=== PATIENT | female | born 1975 | race Caucasian/White ===

== ENCOUNTER 2016-09-17 15:02 | Outpatient (CLI) | payer BC, OTHER ==
[2016-09-18 08:00] LABS: BASOPHILS % (AUTO) 0.2 % (0.0-2.0); EOSINOPHILS # (AUTO) 0.1 K/uL (0.0-0.7); EOSINOPHILS % (AUTO) 1.8 % (0.0-7.0); HEMATOCRIT 40.1 % (37.0-47.0); LYMPHOCYTES % (AUTO) 15.5 % (20.5-51.5); MEAN CORPUSCULAR HEMOGLOBIN 32.4 uug (27.0-31.0); MEAN CORPUSCULAR HGB CONC 35 g/dL (32.0-37.0); MEAN CORPUSCULAR VOLUME 92.9 fL (81.0-99.0); MONOCYTES # (AUTO) 0.3 K/uL (0.1-1.30); MONOCYTES % (AUTO) 4.5 % (0.0-11.0); NEUTROPHILS # (AUTO) 5.3 K/uL (1.8-8.9); PLATELET COUNT (AUTO) 231 K/uL (150-450); RED BLOOD CELL COUNT(AUTO) 4.32 MIL/uL (4.20-5.40); RED CELL DISTRIBUTION WIDTH 12.2 % (11.5-14.5); WHITE BLOOD COUNT (AUTO) 6.7 K/uL (4.0-11.2)
[2016-09-18 09:08] LABS: ALBUMIN 4.2 g/dL (3.4-5.0); BILIRUBIN,TOTAL 0.5 mg/dL (0.2-1.0); CALCIUM 8.6 mg/dL (8.5-10.1); CREATININE 0.6 mg/dL (0.6-1.3); POTASSIUM 3.5 mmol/L (3.5-5.1); TOTAL PROTEIN, SERUM 8.3 g/dL (6.4-8.2)
[2016-09-18 09:21] LABS: HIV-1 p24 ANTIGEN NON REACTIVE (NONREACTIVE); HIV-1/2 ANTIBODY NON REACTIVE (NONREACTIVE)
[2016-09-18 10:06] LABS: THYROID STIMULATING HORMONE 0.404 mIU/mL (0.358-3.740)
[2016-09-19 05:06] LABS: HCV AB <0.1 s/co ratio (0.0-0.9)
== END 2016-09-17 23:59 | disposition home or self-care (01) ==
LOC: LAB 15:02
PROVIDERS: ATTEND Family Medicine
DX: Z12.4 Encounter for screening for malignant neoplasm of cervix (principal); Z11.3 Encounter for screening for infections with a predominantly sexual mode of transmission
CPT/HCPCS: 36415; 84443; 85025; 86592; 86803; 87806

== ENCOUNTER 2017-01-24 07:55 | Outpatient (CLI) | payer BC, OTHER ==
[2017-01-24 08:30] LABS: *BLOOD, URINE 2+ (NEGATIVE); *CLARITY,URINE SLIGHTLY CLOUDY (CLEAR); *KETONES,URINE TRACE (NEGATIVE); LEUKOCYTE ESTERASE ,URINE 3+ (NEGATIVE)
[2017-01-24 08:40] LABS: *BILIRUBIN,URIN 1+ (NEGATIVE); *COLOR,URINE Orange (YELLOW)
[2017-01-24 08:41] LABS: *PROTEIN,URINE 2+ (NEGATIVE); NITRITE, URINE POSITIVE (NEGATIVE); UGLUCOSE TRACE (NEGATIVE)
[2017-01-24 09:08] LABS: BACTERIA,URINE FEW /HPF (NONE SEEN); SQUAMOUS EPITHELIAL CELL,UR FEW /HPF (NONE SEEN)
== END 2017-01-24 23:59 | disposition home or self-care (01) ==
LOC: LAB 07:55
PROVIDERS: ATTEND Family Medicine
DX: N39.0 Urinary tract infection, site not specified (principal)
CPT/HCPCS: 87086

== ENCOUNTER → 2017-02-07 | Outpatient (CLI) | payer BC, OTHER ==
[~2017-02-07] MED LIST: IOHEXOL 300MG/ML 100 ML INFUS..BTL ONE; IV NORMAL SALINE 250 ML IV ONE
[2017-02-07 09:12] LABS: BASOPHILS % (AUTO) 0.7 % (0.0-2.0); EOSINOPHILS % (AUTO) 0.7 % (0.0-7.0); HEMATOCRIT 42.7 % (37-47); HEMOGLOBIN 14.4 G/DL (12.0-16.0); LYMPHOCYTES # (AUTO) 1.6 K/UL (0.8-4.8); LYMPHOCYTES % (AUTO) 23.7 % (20.5-51.5); MEAN CORPUSCULAR HEMOGLOBIN 32.5 UUG (27.0-31.0); MEAN CORPUSCULAR HGB CONC 34 g/dL (32.0-37.0); MEAN CORPUSCULAR VOLUME 96.1 FL (81.0-99.0); MONOCYTES # (AUTO) 0.4 K/UL (0.1-1.30); MONOCYTES % (AUTO) 5.1 % (0.0-11.0); NEUTROPHILS # (AUTO) 4.9 K/UL (1.8-8.9); NEUTROPHILS % (AUTO) 69.8 % (38.5-71.5); RED BLOOD CELL COUNT(AUTO) 4.44 MIL/UL (4.2-5.4); WHITE BLOOD COUNT (AUTO) 6.9 K/UL (4.0-11.2)
[2017-02-07 09:16] LABS: PLATELET COUNT (AUTO) 268 K/UL (150-450)
[2017-02-07 09:29] LABS: BILIRUBIN,TOTAL 0.8 mg/dL (0.2-1.0); CREATININE 0.7 mg/dL (0.6-1.3); POTASSIUM 3.4 mmol/L (3.5-5.1); TOTAL PROTEIN, SERUM 8.3 g/dL (6.4-8.2)
[2017-02-07 11:05] LABS: *URINE HCG, QUAL NEGATIVE (NEGATIVE)
== END | disposition home or self-care (01) ==
LOC: LAB 07:21
PROVIDERS: ATTEND Family Medicine
DX: N20.0 Calculus of kidney (principal); N28.1 Cyst of kidney, acquired; K80.20 Calculus of gallbladder without cholecystitis without obstruction; K76.89 Other specified diseases of liver; K31.89 Other diseases of stomach and duodenum; K42.9 Umbilical hernia without obstruction or gangrene; R04.0 Epistaxis; M47.899 Other spondylosis, site unspecified
CPT/HCPCS: 36415; 74178; 80053; 84703; 85025; 85730; J7050; Q9967

== ENCOUNTER 2017-03-14 10:34 | Outpatient (CLI) | payer BC, OTHER ==
[2017-03-15 08:17] LABS: AFP, TUMOR MARKER 4.6 ng/mL (0.0-8.3); HEPATITIS A AB, TOTAL Positive (Negative); HEPATITIS B SURFACE AB Reactive (.); HEPATITIS B SURFACE AG Negative (Negative)
== END 2017-03-14 23:59 | disposition home or self-care (01) ==
LOC: LAB 10:34
PROVIDERS: ATTEND Family Medicine
DX: K76.9 Liver disease, unspecified (principal)
CPT/HCPCS: 36415; 82105; 86706; 86708; 86803; 87340

== ENCOUNTER 2017-04-23 12:04 | Day surgery (SDC) | payer BC, OTHER ==
[2017-04-23] MEDS ORDERED: PROPOFOL 200 MG/20 ML BOTTLE IV ONE (12:05)
[2017-04-23] MEDS ORDERED: LIDOCAINE HCL 2% 20 ML VIAL MC ONE (12:05)
[2017-04-23 12:12] LABS: BASOPHILS # (AUTO) 0.1 K/uL (0.0-8.0); BASOPHILS % (AUTO) 0.7 % (0.0-2.0); EOSINOPHILS % (AUTO) 0.4 % (0.0-7.0); HEMOGLOBIN 13.6 g/dL (10.9-14.3); LYMPHOCYTES # (AUTO) 1.3 K/uL (20.0-40.0); LYMPHOCYTES % (AUTO) 18.7 % (20.5-51.5); MEAN CORPUSCULAR HEMOGLOBIN 33.3 uug (24.7-32.8); MEAN CORPUSCULAR HGB CONC 35 g/dL (32.3-35.6); MEAN CORPUSCULAR VOLUME 95.5 fL (75.5-95.3); MONOCYTES # (AUTO) 0.4 K/uL (2.0-10.0); MONOCYTES % (AUTO) 5.3 % (0.0-11.0); NEUTROPHILS # (AUTO) 5.3 K/uL (1.8-8.9); NEUTROPHILS % (AUTO) 74.9 % (38.5-71.5); PLATELET COUNT (AUTO) 217 K/uL (179-408); RED BLOOD CELL COUNT(AUTO) 4.08 MIL/uL (3.63-4.92)
[2017-04-23 12:16] LABS: *BILIRUBIN,URIN NEGATIVE (NEGATIVE); *BLOOD, URINE 3+ (NEGATIVE); *CLARITY,URINE SLIGHTLY CLOUDY (CLEAR); *COLOR,URINE YELLOW (YELLOW); *KETONES,URINE 1+ (NEGATIVE); *PROTEIN,URINE NEGATIVE (NEGATIVE); *UROBILINOGEN,URINE 0.2 E.U./dl (NORMAL); LEUKOCYTE ESTERASE ,URINE 1+ (NEGATIVE); NITRITE, URINE NEGATIVE (NEGATIVE); PH,URINE 5.5 (5.0-8.0); UGLUCOSE NEGATIVE (NEGATIVE)
[2017-04-23 12:17] LABS: *URINE HCG, QUAL NEG (NEGATIVE)
[2017-04-23 12:18] LABS: CREATININE 0.6 mg/dL (0.6-1.3); POTASSIUM 3.5 mmol/L (3.5-5.1)
[2017-04-23 12:24] LABS: BILIRUBIN,TOTAL 1.1 mg/dL (0.2-1.0); TOTAL PROTEIN, SERUM 7.8 g/dL (6.4-8.2)
[2017-04-23 12:30] LABS: RBC,URINE 20-50 /HPF (0-3)
[2017-04-23 12:31] LABS: BACTERIA,URINE FEW /HPF (NONE SEEN); SQUAMOUS EPITHELIAL CELL,UR MODERATE /HPF (NONE SEEN)
== END 2017-04-23 15:35 | disposition home or self-care (01) ==
LOC: DS 12:04
PROVIDERS: ATTEND Internal Medicine Gastroenterology
DX: R10.13 Epigastric pain (principal); K27.9 Peptic ulcer, site unspecified, unspecified as acute or chronic, without hemorrhage or perforation; Z80.3 Family history of malignant neoplasm of breast
CPT/HCPCS: 36415; 43239; 80053; 81001; 84703; 85025; 85730; A4663; J7120; A4217; J3490

== ENCOUNTER → 2017-07-04 | Outpatient (CLI) | payer BC, OTHER ==
[2017-07-04 11:54] LABS: BASOPHILS % (AUTO) 0.5 % (0.0-2.0); EOSINOPHILS % (AUTO) 0.5 % (0.0-7.0); HEMATOCRIT 38.3 % (31.2-41.9); HEMOGLOBIN 13.5 g/dL (10.9-14.3); LYMPHOCYTES # (AUTO) 1.7 K/uL (20.0-40.0); LYMPHOCYTES % (AUTO) 24.9 % (20.5-51.5); MEAN CORPUSCULAR HEMOGLOBIN 33.3 uug (24.7-32.8); MEAN CORPUSCULAR HGB CONC 35 g/dL (32.3-35.6); MEAN CORPUSCULAR VOLUME 94.2 fL (75.5-95.3); MONOCYTES # (AUTO) 0.5 K/uL (2.0-10.0); MONOCYTES % (AUTO) 6.8 % (0.0-11.0); NEUTROPHILS # (AUTO) 4.7 K/uL (1.8-8.9); NEUTROPHILS % (AUTO) 67.3 % (38.5-71.5); PLATELET COUNT (AUTO) 232 K/uL (179-408); RED BLOOD CELL COUNT(AUTO) 4.07 MIL/uL (3.63-4.92)
[2017-07-04 12:04] LABS: BILIRUBIN,TOTAL 0.9 mg/dL (0.2-1.0); CREATININE 0.8 mg/dL (0.6-1.3); POTASSIUM 3.2 mmol/L (3.5-5.1); TOTAL PROTEIN, SERUM 8.1 g/dL (6.4-8.2)
[2017-07-05 15:10] LABS: HEPATITIS B SURFACE AB Reactive (.); HEPATITIS B SURFACE AG Negative (Negative)
[2017-07-06 03:09] LABS: AFP, TUMOR MARKER 3.7 ng/mL (0.0-8.3)
[2017-07-07 08:07] LABS: ANTI-MITOCHONDRIAL AB 32.8 Units (0.0-20.0)
== END | disposition home or self-care (01) ==
LOC: LAB 11:16
PROVIDERS: ATTEND Internal Medicine Gastroenterology
DX: K76.9 Liver disease, unspecified (principal)
CPT/HCPCS: 36415; 82105; 85025; 86038; 86235; 86706; 86803; 87340

== ENCOUNTER 2018-03-05 07:53 | Outpatient (CLI) | payer BC, OTHER | END 2018-03-05 23:59 | disposition home or self-care (01) | LOC: LAB 07:53 | PROVIDERS: ATTEND Family Medicine | DX: K80.20 Calculus of gallbladder without cholecystitis without obstruction (principal) | CPT/HCPCS: 36415; 76700; 86677 ==

== ENCOUNTER 2018-04-03 12:19 | Emergency (ER) | payer BC, OTHER ==
[~2018-04-03] VITALS: Ht 152.4 cm; Wt 49.9 kg
--- NOTE | 2018-04-03 12:35 | NUR ---
Patient discharged in stable conditon. Written and verbal after care instructions given. Patient verbalizes understanding of instructions.
[2018-04-03 12:36] VITALS: BP 104/74
== END 2018-04-03 12:38 | disposition home or self-care (01) ==
LOC: ER 12:19
DX: I88.9 Nonspecific lymphadenitis, unspecified (principal)
CPT/HCPCS: A4663

== ENCOUNTER 2018-08-27 06:51 | Outpatient (CLI) | payer BC, OTHER ==
[2018-08-27 07:59] LABS: BASOPHILS % (AUTO) 0.9 % (0.0-2.0); EOSINOPHILS # (AUTO) 0.1 K/uL (0.0-0.7); EOSINOPHILS % (AUTO) 1.3 % (0.0-7.0); HEMATOCRIT 39.1 % (31.2-41.9); HEMOGLOBIN 13.8 g/dL (10.9-14.3); LYMPHOCYTES % (AUTO) 18.5 % (20.5-51.5); MEAN CORPUSCULAR HEMOGLOBIN 32.9 uug (24.7-32.8); MEAN CORPUSCULAR HGB CONC 35 g/dL (32.3-35.6); MEAN CORPUSCULAR VOLUME 93.5 fL (75.5-95.3); MONOCYTES # (AUTO) 0.3 K/uL (2.0-10.0); MONOCYTES % (AUTO) 5.1 % (0.0-11.0); NEUTROPHILS # (AUTO) 3.8 K/uL (1.8-8.9); NEUTROPHILS % (AUTO) 74.2 % (38.5-71.5); PLATELET COUNT (AUTO) 230 K/uL (179-408); RED BLOOD CELL COUNT(AUTO) 4.19 MIL/uL (3.63-4.92); WHITE BLOOD COUNT (AUTO) 5.2 K/uL (3.8-11.8)
[2018-08-27 08:23] LABS: THYROID STIMULATING HORMONE 0.443 mIU/mL (0.358-3.740)
[2018-08-27 08:38] LABS: IRON, SERUM 139 ug/dL (50-175)
[2018-08-27 08:42] LABS: BILIRUBIN,TOTAL 0.8 mg/dL (0.2-1.0); CREATININE 0.6 mg/dL (0.6-1.3); POTASSIUM 3.5 mmol/L (3.5-5.1); TOTAL PROTEIN, SERUM 8.1 g/dL (6.4-8.2)
[2018-08-30 18:06] LABS: *VITAMIN D 25-OH VIT D 20 ng/mL (.); *VITAMIN D 25-OH, D2 <1.0 ng/mL (.); *VITAMIN D 25-OH, D3 19 ng/mL (.)
== END 2018-08-27 23:59 | disposition home or self-care (01) ==
LOC: LAB 06:51
PROVIDERS: ATTEND Internal Medicine
DX: R53.83 Other fatigue (principal)
CPT/HCPCS: 83550; 84443; 85025

== ENCOUNTER 2019-06-10 08:57 | Emergency (ER) | payer BC, OTHER ==
[~2019-06-10] VITALS: Ht 149.9 cm; Wt 49.4 kg
--- NOTE | 2019-06-10 09:15 | NUR ---
ERMD at bedside for MSE
[2019-06-10] MEDS ORDERED: ACETAMINOPHEN ES 500 MG TABLET PO ONE (09:30)
[2019-06-10] MEDS ORDERED: IPRATROPIUM BROMIDE 0.5 MG/2.5 ML NEBU NEB ONE (09:30)
[2019-06-10] MEDS ORDERED: IBUPROFEN 600 MG TABLET PO ONE (09:30)
[2019-06-10] MEDS ORDERED: ONDANSETRON 4 MG/2 ML VIAL IV ONE (09:30)
[2019-06-10] MEDS ORDERED: IV NORMAL SALINE 1000 ML BAG IV ONE (09:30)
[2019-06-10] MEDS ORDERED: ALBUTEROL SULFATE 2.5 MG/3 ML NEBU NEB ONE (09:30)
[2019-06-10] MEDS ORDERED: IPRATROPIUM BROMIDE 0.5 MG/2.5 ML NEBU ONE (09:31)
[2019-06-10] MEDS ORDERED: ALBUTEROL SULFATE 2.5 MG/3 ML NEBU ONE (09:31)
[2019-06-10] MEDS ORDERED: ACETAMINOPHEN ES 500 MG TABLET ONE (09:33)
[2019-06-10] MEDS ORDERED: IBUPROFEN 600 MG TABLET ONE (09:34)
[2019-06-10] MEDS ORDERED: ONDANSETRON 4 MG/2 ML VIAL ONE (09:34)
--- NOTE | 2019-06-10 09:40 | NUR ---
Patient transported to Radiology in stable condition.
[2019-06-10 09:43] LABS: BASOPHILS # (AUTO) 0.1 K/uL (0.0-8.0); EOSINOPHILS # (AUTO) 0.2 K/uL (0.0-0.7); EOSINOPHILS % (AUTO) 1.7 % (0.0-7.0); HEMATOCRIT 40.3 % (31.2-41.9); HEMOGLOBIN 13.8 g/dL (10.9-14.3); LYMPHOCYTES # (AUTO) 1.3 K/uL (20.0-40.0); LYMPHOCYTES % (AUTO) 14.1 % (20.5-51.5); MEAN CORPUSCULAR HEMOGLOBIN 32.8 uug (24.7-32.8); MEAN CORPUSCULAR HGB CONC 34 g/dL (32.3-35.6); MONOCYTES # (AUTO) 0.5 K/uL (2.0-10.0); MONOCYTES % (AUTO) 5.2 % (0.0-11.0); PLATELET COUNT (AUTO) 213 K/uL (179-408); RED BLOOD CELL COUNT(AUTO) 4.21 MIL/uL (3.63-4.92)
--- NOTE | 2019-06-10 09:48 | NUR ---
Patient back in room from CT
[2019-06-10 09:50] LABS: MAGNESIUM 1.9 mg/dL (1.8-2.4)
[2019-06-10 09:51] LABS: CREATININE 0.6 mg/dL (0.6-1.3)
[2019-06-10 10:05] LABS: BILIRUBIN,DIRECT 0.1 mg/dL (0.0-0.2); BILIRUBIN,TOTAL 0.5 mg/dL (0.2-1.0)
[2019-06-10 10:28] LABS: *BILIRUBIN,URIN NEGATIVE (NEGATIVE); *BLOOD, URINE 3+ (NEGATIVE); *CLARITY,URINE CLEAR (CLEAR); *COLOR,URINE YELLOW (YELLOW); *KETONES,URINE NEGATIVE (NEGATIVE); *UROBILINOGEN,URINE 0.2 E.U./dl (NORMAL); LEUKOCYTE ESTERASE ,URINE NEGATIVE (NEGATIVE); NITRITE, URINE NEGATIVE (NEGATIVE); UGLUCOSE NEGATIVE (NEGATIVE)
[2019-06-10 10:30] LABS: *URINE HCG, QUAL NEGATIVE (NEGATIVE)
[2019-06-10 10:36] LABS: BACTERIA,URINE FEW /HPF (NONE SEEN); SQUAMOUS EPITHELIAL CELL,UR FEW /HPF (NONE SEEN); WBC,URINE 0-3 /HPF (0-3)
[2019-06-10 10:52] VITALS: BP 123/69
--- NOTE | 2019-06-10 10:52 | NUR ---
Patient discharged to home in stable conditon. Written and verbal after care instructions given. Patient verbalizes understanding of instructions. NAD patient ambulated with stable gait.
== END 2019-06-10 10:53 | disposition home or self-care (01) ==
LOC: ER 08:57
DX: R11.0 Nausea (principal); J20.9 Acute bronchitis, unspecified; R51 Headache; M79.10 Myalgia, unspecified site
CPT/HCPCS: 36415; 71046; 80048; 80076; 81000; 81001; 83690; 83735; 84703; 85025; 94640; 96374; 99284; J2405; A4663; A9150; J3590

== ENCOUNTER → 2019-10-16 | Outpatient (CLI) | payer BC, OTHER | END | disposition home or self-care (01) | LOC: LAB 07:47 | PROVIDERS: ATTEND Family Medicine | DX: R10.9 Unspecified abdominal pain (principal) | CPT/HCPCS: 76700 ==

== ENCOUNTER 2019-10-23 09:44 | Emergency (ER) | payer BC, OTHER ==
[~2019-10-23] VITALS: Ht 149.9 cm; Wt 49.9 kg
[2019-10-23] MEDS ORDERED: PANTOPRAZOLE SODIUM 40 MG TABLET.DR PO ONE ×2 (10:15→10:18)
[2019-10-23] MEDS ORDERED: MAG HYDROX/AL HYDROX/SIMETH 30 ML LIQUID UDC PO ONE (10:15)
[2019-10-23] MEDS ORDERED: LIDOCAINE VISCUS 2% 15 ML UDC MM ONE (10:15)
[2019-10-23] MEDS ORDERED: ONDANSETRON ODT 4 MG TAB.RAPDIS SL ONE (10:15)
[2019-10-23] MEDS ORDERED: FAMOTIDINE 20 MG TABLET PO ONE (10:15)
[2019-10-23] MEDS ORDERED: ONDANSETRON ODT 4 MG TAB.RAPDIS ONE (10:17)
[2019-10-23] MEDS ORDERED: MAG HYDROX/AL HYDROX/SIMETH 30 ML LIQUID UDC ONE (10:18)
[2019-10-23] MEDS ORDERED: FAMOTIDINE 20 MG TABLET ONE (10:18)
[2019-10-23] MEDS ORDERED: LIDOCAINE VISCUS 2% 15 ML UDC ONE (10:18)
[2019-10-23 10:31] LABS: BASOPHILS # (AUTO) 0.1 K/uL (0.0-8.0); BASOPHILS % (AUTO) 1.2 % (0.0-2.0); EOSINOPHILS # (AUTO) 0.1 K/uL (0.0-0.7); HEMATOCRIT 39.9 % (31.2-41.9); HEMOGLOBIN 13.7 g/dL (10.9-14.3); LYMPHOCYTES # (AUTO) 1.1 K/uL (20.0-40.0); LYMPHOCYTES % (AUTO) 18.8 % (20.5-51.5); MEAN CORPUSCULAR HEMOGLOBIN 32.2 uug (24.7-32.8); MEAN CORPUSCULAR HGB CONC 34 g/dL (32.3-35.6); MEAN CORPUSCULAR VOLUME 93.9 fL (75.5-95.3); MONOCYTES # (AUTO) 0.3 K/uL (2.0-10.0); MONOCYTES % (AUTO) 5.7 % (0.0-11.0); NEUTROPHILS # (AUTO) 4.1 K/uL (1.8-8.9); NEUTROPHILS % (AUTO) 73.3 % (38.5-71.5); PLATELET COUNT (AUTO) 223 K/uL (179-408); RED BLOOD CELL COUNT(AUTO) 4.25 MIL/uL (3.63-4.92); WHITE BLOOD COUNT (AUTO) 5.6 K/uL (3.8-11.8)
[2019-10-23 10:35] LABS: CREATININE 0.6 mg/dL (0.6-1.3); POTASSIUM 3.7 mmol/L (3.5-5.1)
[2019-10-23 10:40] LABS: BILIRUBIN,DIRECT 0.2 mg/dL (0.0-0.2); BILIRUBIN,TOTAL 0.6 mg/dL (0.2-1.0); TOTAL PROTEIN, SERUM 8.1 g/dL (6.4-8.2)
[2019-10-23 11:01] LABS: *BILIRUBIN,URIN NEGATIVE (NEGATIVE); *BLOOD, URINE 1+ (NEGATIVE); *CLARITY,URINE CLOUDY (CLEAR); *COLOR,URINE YELLOW (YELLOW); *KETONES,URINE NEGATIVE (NEGATIVE); *UROBILINOGEN,URINE 0.2 E.U./dl (NORMAL); LEUKOCYTE ESTERASE ,URINE NEGATIVE (NEGATIVE); NITRITE, URINE NEGATIVE (NEGATIVE); PH,URINE 8.5 (5.0-8.0); UGLUCOSE NEGATIVE (NEGATIVE)
[2019-10-23 11:02] LABS: *URINE HCG, QUAL NEGATIVE (NEGATIVE)
[2019-10-23 11:09] LABS: BACTERIA,URINE NONE SEEN /HPF (NONE SEEN); WBC,URINE 0-3 /HPF (0-3)
[2019-10-23 11:10] LABS: SQUAMOUS EPITHELIAL CELL,UR FEW /HPF (NONE SEEN); URINE AMORPHOUS PHOSPHATES MANY /HPF
--- NOTE | 2019-10-23 11:35 | NUR ---
Patient discharged to home in stable condition. Written and verbal after care instructions given. Patient verbalizes understanding of instructions. Stressed follow up or return to ER for worsening s/s.
== END 2019-10-23 11:37 | disposition home or self-care (01) ==
LOC: ER 09:44
DX: K29.00 Acute gastritis without bleeding (principal); R11.2 Nausea with vomiting, unspecified; R51 Headache; Z87.898 Personal history of other specified conditions; R10.13 Epigastric pain
CPT/HCPCS: 36415; 70030-TC; 83690; 84703; 85025; 93005; A4663; Q0162

== ENCOUNTER → 2020-03-25 | Outpatient (CLI) | payer BC, OTHER ==
[~2020-03-25] MED LIST changes: -IOHEXOL 300MG/ML 100 ML INFUS..BTL ONE; -IV NORMAL SALINE 250 ML IV ONE; +PANT20TA2 PO
[2020-03-25 07:43] LABS: BASOPHILS # (AUTO) 0.1 K/uL (0.0-8.0); BASOPHILS % (AUTO) 0.7 % (0.0-2.0); EOSINOPHILS % (AUTO) 0.3 % (0.0-7.0); HEMATOCRIT 39.2 % (31.2-41.9); HEMOGLOBIN 13.7 g/dL (10.9-14.3); LYMPHOCYTES # (AUTO) 0.8 K/uL (20.0-40.0); LYMPHOCYTES % (AUTO) 11.4 % (20.5-51.5); MEAN CORPUSCULAR HEMOGLOBIN 33.3 uug (24.7-32.8); MEAN CORPUSCULAR HGB CONC 35 g/dL (32.3-35.6); MEAN CORPUSCULAR VOLUME 95.1 fL (75.5-95.3); MONOCYTES # (AUTO) 0.3 K/uL (2.0-10.0); MONOCYTES % (AUTO) 4.7 % (0.0-11.0); NEUTROPHILS # (AUTO) 6.1 K/uL (1.8-8.9); NEUTROPHILS % (AUTO) 82.9 % (38.5-71.5); PLATELET COUNT (AUTO) 241 K/uL (179-408); RED BLOOD CELL COUNT(AUTO) 4.12 MIL/uL (3.63-4.92); WHITE BLOOD COUNT (AUTO) 7.4 K/uL (3.8-11.8)
[2020-03-25 07:56] LABS: BILIRUBIN,TOTAL 0.9 mg/dL (0.2-1.0); CREATININE 0.7 mg/dL (0.6-1.3); POTASSIUM 3.3 mmol/L (3.5-5.1); TOTAL PROTEIN, SERUM 8.3 g/dL (6.4-8.2)
[2020-03-25 08:41] LABS: THYROID STIMULATING HORMONE 0.59 mIU/mL (0.358-3.740)
[2020-03-25 10:45] LABS: *RHEUMATOID FACTOR SCREEN NEGATIVE (NEGATIVE)
== END | disposition home or self-care (01) ==
LOC: LAB 06:46
PROVIDERS: ATTEND Family Medicine
DX: M25.522 Pain in left elbow (principal); Z00.01 Encounter for general adult medical examination with abnormal findings
CPT/HCPCS: 73080; 82306; 84443; 85025; 86038; 86430; 86592; 87806

== ENCOUNTER 2020-07-30 22:00 | Emergency (ER) | payer BC, OTHER ==
[~2020-07-30] VITALS: Ht 149.9 cm; Wt 49.4 kg
[2020-07-30] MEDS ORDERED: ONDANSETRON 4 MG/2 ML VIAL IM ONE (22:15)
[2020-07-30] MEDS ORDERED: HYDROMORPHONE 1 MG/1 ML DISP.SYRIN IM ONE (22:15)
[2020-07-30] MEDS ORDERED: HYDROMORPHONE 1 MG/1 ML DISP.SYRIN ONE (22:20)
[2020-07-30] MEDS ORDERED: ONDANSETRON 4 MG/2 ML VIAL ONE (22:20)
--- NOTE | 2020-07-30 23:04 | NUR ---
Patient discharged to home in stable condition. Written and verbal after care instructions given. Patient and boyfriend Amaury verbalizes understanding of instructions. Stressed follow up or return to ER for worsening s/s.
== END 2020-07-30 23:10 | disposition home or self-care (01) ==
LOC: ER 22:03
DX: R51.9 Headache, unspecified (principal); K21.9 Gastro-esophageal reflux disease without esophagitis; Z79.899 Other long term (current) drug therapy
CPT/HCPCS: 70450; 96372 ×2; 99284; J1170; J2405; A4663

== ENCOUNTER 2020-08-04 08:00 | Outpatient (CLI) | payer BC, OTHER ==
[2020-08-04 07:05] LABS: BASOPHILS # (AUTO) 0.1 K/uL (0.0-8.0); BASOPHILS % (AUTO) 1.2 % (0.0-2.0); EOSINOPHILS # (AUTO) 0.1 K/uL (0.0-0.7); EOSINOPHILS % (AUTO) 1.2 % (0.0-7.0); HEMATOCRIT 37.4 % (31.2-41.9); HEMOGLOBIN 13.3 g/dL (10.9-14.3); LYMPHOCYTES # (AUTO) 1.3 K/uL (20.0-40.0); LYMPHOCYTES % (AUTO) 20.1 % (20.5-51.5); MEAN CORPUSCULAR HEMOGLOBIN 33.8 uug (24.7-32.8); MEAN CORPUSCULAR HGB CONC 35 g/dL (32.3-35.6); MEAN CORPUSCULAR VOLUME 95.6 fL (75.5-95.3); MONOCYTES # (AUTO) 0.4 K/uL (2.0-10.0); MONOCYTES % (AUTO) 6.6 % (0.0-11.0); NEUTROPHILS # (AUTO) 4.5 K/uL (1.8-8.9); NEUTROPHILS % (AUTO) 70.9 % (38.5-71.5); PLATELET COUNT (AUTO) 222 K/uL (179-408); RED BLOOD CELL COUNT(AUTO) 3.92 MIL/uL (3.63-4.92); WHITE BLOOD COUNT (AUTO) 6.4 K/uL (3.8-11.8)
[2020-08-04 07:07] LABS: *BILIRUBIN,URIN NEGATIVE (NEGATIVE); *BLOOD, URINE 2+ (NEGATIVE); *CLARITY,URINE CLEAR (CLEAR); *COLOR,URINE YELLOW (YELLOW); *KETONES,URINE NEGATIVE (NEGATIVE); *UROBILINOGEN,URINE 0.2 E.U./dl (NORMAL); LEUKOCYTE ESTERASE ,URINE 1+ (NEGATIVE); NITRITE, URINE NEGATIVE (NEGATIVE); UGLUCOSE NEGATIVE (NEGATIVE)
[2020-08-04 07:16] LABS: BILIRUBIN,TOTAL 0.6 mg/dL (0.2-1.0); CREATININE 0.9 mg/dL (0.6-1.3); POTASSIUM 3.9 mmol/L (3.5-5.1); TOTAL PROTEIN, SERUM 8.1 g/dL (6.4-8.2)
[2020-08-04 08:10] LABS: THYROID STIMULATING HORMONE 0.563 mIU/mL (0.358-3.740)
[2020-08-08 16:53] LABS: ESTRADIOL 6.5; FOLLICLE STIMULATION HORMONE 69.1; LUTEINIZING HORMONE 38.2
== END 2020-08-04 23:59 | disposition home or self-care (01) ==
LOC: LAB 08:00
PROVIDERS: ATTEND Family Medicine
DX: N91.2 Amenorrhea, unspecified (principal); R10.9 Unspecified abdominal pain; R51.9 Headache, unspecified
CPT/HCPCS: 36415; 82306; 82670; 83001; 83002; 84443; 85025; 87086

== ENCOUNTER 2020-08-22 08:12 | Outpatient (CLI) | payer BC, OTHER ==
[2020-08-22 10:16] LABS: *BILIRUBIN,URIN NEGATIVE (NEGATIVE); *BLOOD, URINE 2+ (NEGATIVE); *CLARITY,URINE TURBID (CLEAR); *KETONES,URINE NEGATIVE (NEGATIVE); *UROBILINOGEN,URINE 0.2 E.U./dl (NORMAL); LEUKOCYTE ESTERASE ,URINE NEGATIVE (NEGATIVE); NITRITE, URINE NEGATIVE (NEGATIVE); PH,URINE 5.5 (5.0-8.0); UGLUCOSE NEGATIVE (NEGATIVE)
[2020-08-22 10:21] LABS: *COLOR,URINE LIGHT YELLOW (YELLOW)
[2020-08-22 14:11] LABS: BACTERIA,URINE FEW /HPF (NONE SEEN); CALCIUM OXALATE CRYSTALS,UR FEW /HPF (NONE SEEN); SQUAMOUS EPITHELIAL CELL,UR FEW /HPF (NONE SEEN); URINE AMORPHOUS URATE MANY /HPF; WBC,URINE 0-3 /HPF (0-3)
== END 2020-08-22 23:59 | disposition home or self-care (01) ==
LOC: LAB 08:12
PROVIDERS: ATTEND Family Medicine
DX: N95.1 Menopausal and female climacteric states (principal); N91.2 Amenorrhea, unspecified; R31.9 Hematuria, unspecified; R04.0 Epistaxis; R10.9 Unspecified abdominal pain
CPT/HCPCS: 84146; 87086; U0003

== ENCOUNTER 2020-09-05 14:37 | Outpatient (CLI) | payer BC, OTHER | END 2020-09-05 23:59 | disposition home or self-care (01) | LOC: CT 14:37 | PROVIDERS: ATTEND Family Medicine | DX: J34.2 Deviated nasal septum (principal); R04.0 Epistaxis | CPT/HCPCS: 70486 ==

== ENCOUNTER 2020-09-06 09:59 | Outpatient (CLI) | payer BC, OTHER | END 2020-09-06 23:59 | disposition home or self-care (01) | LOC: US 09:59 | PROVIDERS: ATTEND Internal Medicine Gastroenterology | DX: R10.13 Epigastric pain (principal) | CPT/HCPCS: 76700 ==

== ENCOUNTER 2020-09-13 06:43 | Outpatient (CLI) | payer BC, OTHER | END 2020-09-13 23:59 | disposition home or self-care (01) | LOC: LAB 06:43 | PROVIDERS: ATTEND Internal Medicine Gastroenterology | DX: Z01.812 Encounter for preprocedural laboratory examination (principal); Z20.822 Contact with and (suspected) exposure to COVID-19; R10.13 Epigastric pain ==

== ENCOUNTER 2020-09-15 10:00 | Day surgery (SDC) | payer BC, OTHER ==
[2020-09-15] MEDS ORDERED: PROPOFOL 200 MG/20 ML BOTTLE IV ONE (10:01)
[2020-09-15] MEDS ORDERED: LIDOCAINE-MPF 2% 5 ML VIAL IJ ONE (10:01)
[2020-09-15] MEDS ORDERED: IRR STERIL WATER FOR IRR 1000 ML BOTTLE IR ONE (10:01)
[2020-09-15 10:38] LABS: *BILIRUBIN,URIN NEGATIVE (NEGATIVE); *BLOOD, URINE 2+ (NEGATIVE); *CLARITY,URINE SLIGHTLY CLOUDY (CLEAR); *COLOR,URINE YELLOW (YELLOW); *KETONES,URINE NEGATIVE (NEGATIVE); *UROBILINOGEN,URINE 0.2 E.U./dl (NORMAL); LEUKOCYTE ESTERASE ,URINE TRACE (NEGATIVE); NITRITE, URINE NEGATIVE (NEGATIVE); PH,URINE 5.5 (5.0-8.0); UGLUCOSE NEGATIVE (NEGATIVE)
[2020-09-15 10:41] LABS: *URINE HCG, QUAL NEG (NEGATIVE)
[2020-09-15 10:43] LABS: CREATININE 0.7 mg/dL (0.6-1.3); POTASSIUM 3.7 mmol/L (3.5-5.1)
[2020-09-15 10:46] LABS: WHITE BLOOD COUNT (AUTO) 6.3 K/uL (3.8-11.8)
[2020-09-15 10:48] LABS: BILIRUBIN,TOTAL 0.6 mg/dL (0.2-1.0); TOTAL PROTEIN, SERUM 8.2 g/dL (6.4-8.2)
[2020-09-15 10:51] LABS: BASOPHILS # (AUTO) 0.1 K/uL (0.0-8.0); BASOPHILS % (AUTO) 1.1 % (0.0-2.0); EOSINOPHILS # (AUTO) 0.1 K/uL (0.0-0.7); HEMATOCRIT 38.8 % (31.2-41.9); HEMOGLOBIN 13.8 g/dL (10.9-14.3); LYMPHOCYTES # (AUTO) 1.6 K/uL (20.0-40.0); LYMPHOCYTES % (AUTO) 25.6 % (20.5-51.5); MEAN CORPUSCULAR HEMOGLOBIN 33.9 uug (24.7-32.8); MEAN CORPUSCULAR HGB CONC 36 g/dL (32.3-35.6); MEAN CORPUSCULAR VOLUME 95.2 fL (75.5-95.3); MONOCYTES # (AUTO) 0.3 K/uL (2.0-10.0); MONOCYTES % (AUTO) 5.4 % (0.0-11.0); NEUTROPHILS # (AUTO) 4.2 K/uL (1.8-8.9); NEUTROPHILS % (AUTO) 66.9 % (38.5-71.5); PLATELET COUNT (AUTO) 195 K/uL (179-408); RED BLOOD CELL COUNT(AUTO) 4.07 MIL/uL (3.63-4.92)
[2020-09-15 22:46] LABS: BACTERIA,URINE FEW /HPF (NONE SEEN); SQUAMOUS EPITHELIAL CELL,UR FEW /HPF (NONE SEEN); WBC,URINE 0-3 /HPF (0-3)
== END 2020-09-15 12:40 | disposition home or self-care (01) ==
LOC: DS 10:00
PROVIDERS: ATTEND Internal Medicine Gastroenterology
DX: R10.13 Epigastric pain (principal); K21.00 Gastro-esophageal reflux disease with esophagitis, without bleeding; K29.50 Unspecified chronic gastritis without bleeding; K31.89 Other diseases of stomach and duodenum; K76.9 Liver disease, unspecified; R10.816 Epigastric abdominal tenderness; Z87.440 Personal history of urinary (tract) infections; Z79.899 Other long term (current) drug therapy; Z98.890 Other specified postprocedural states
CPT/HCPCS: 36415; 43239; 80053; 81001; 84703; 85025; 85730; J3490; 88313-TC; 88342; A4217

== ENCOUNTER 2020-09-23 08:33 | Outpatient (CLI) | payer BC, OTHER | END 2020-09-23 23:59 | disposition home or self-care (01) | LOC: LAB 08:33 | PROVIDERS: ATTEND Family Medicine | DX: Z75.3 Unavailability and inaccessibility of health-care facilities (principal) ==

== ENCOUNTER 2020-09-27 08:09 | Outpatient (CLI) | payer BC, OTHER ==
[2020-09-27 08:45] LABS: BILIRUBIN,TOTAL 0.6 mg/dL (0.2-1.0); CREATININE 0.7 mg/dL (0.6-1.3); POTASSIUM 3.6 mmol/L (3.5-5.1)
[2020-09-27 08:50] LABS: EOSINOPHILS # (AUTO) 0.1 K/uL (0.0-0.7); HEMOGLOBIN 13.5 g/dL (10.9-14.3); MONOCYTES # (AUTO) 0.3 K/uL (2.0-10.0)
[2020-09-27 09:11] LABS: BASOPHILS # (AUTO) 0.1 K/uL (0.0-8.0); BASOPHILS % (AUTO) 0.9 % (0.0-2.0); EOSINOPHILS % (AUTO) 1.1 % (0.0-7.0); HEMATOCRIT 38.6 % (31.2-41.9); LYMPHOCYTES # (AUTO) 1.1 K/uL (20.0-40.0); LYMPHOCYTES % (AUTO) 19.7 % (20.5-51.5); MEAN CORPUSCULAR HEMOGLOBIN 33.4 uug (24.7-32.8); MEAN CORPUSCULAR HGB CONC 35 g/dL (32.3-35.6); MEAN CORPUSCULAR VOLUME 95.9 fL (75.5-95.3); MONOCYTES % (AUTO) 5.9 % (0.0-11.0); NEUTROPHILS # (AUTO) 4.1 K/uL (1.8-8.9); NEUTROPHILS % (AUTO) 72.4 % (38.5-71.5); PLATELET COUNT (AUTO) 229 K/uL (179-408); RED BLOOD CELL COUNT(AUTO) 4.03 MIL/uL (3.63-4.92); WHITE BLOOD COUNT (AUTO) 5.7 K/uL (3.8-11.8)
[2020-09-27] MEDS ORDERED: IOHEXOL 300MG/ML 100 ML INFUS..BTL ONE (09:18)
[2020-09-27] MEDS ORDERED: IV NORMAL SALINE 250 ML IV ONE (09:18)
[2020-09-27] MEDS ORDERED: SWABABLE VALVE TRANSFER SET EA MC ONE (09:18)
--- NOTE | 2020-09-28 11:04 | NUR ---
RESULTS WERE FAXED TO THE PATIENTS
--- NOTE | 2020-09-28 11:05 | NUR ---
RESULTS OF CT WERE FAXED TO DR OSULLIVAN
== END 2020-09-27 23:59 | disposition home or self-care (01) ==
LOC: LAB 08:09
PROVIDERS: ATTEND Family Medicine
DX: K80.11 Calculus of gallbladder with chronic cholecystitis with obstruction (principal); N20.0 Calculus of kidney; N28.1 Cyst of kidney, acquired; N32.89 Other specified disorders of bladder; R31.9 Hematuria, unspecified; N85.4 Malposition of uterus; M41.85 Other forms of scoliosis, thoracolumbar region; M47.815 Spondylosis without myelopathy or radiculopathy, thoracolumbar region
CPT/HCPCS: 74178; 80053; 82150; 83690; 85025; 85730; 86704; 86706; 86803; 87340; 87350; Q9967; 36415; J7050

== ENCOUNTER 2021-01-18 09:04 | Outpatient (CLI) | payer BC, OTHER ==
[2021-01-19 08:20] LABS: HEMATOCRIT 41.8 % (31.2-41.9); MEAN CORPUSCULAR HEMOGLOBIN 32.8 uug (24.7-32.8); MEAN CORPUSCULAR VOLUME 96.1 fL (75.5-95.3); PLATELET COUNT (AUTO) 230 K/uL (179-408)
[2021-01-19 08:26] LABS: BILIRUBIN,TOTAL 0.7 mg/dL (0.2-1.0); CREATININE 0.6 mg/dL (0.6-1.3); POTASSIUM 4.5 mmol/L (3.5-5.1); TOTAL PROTEIN, SERUM 8.4 g/dL (6.4-8.2)
== END 2021-01-18 23:59 | disposition home or self-care (01) ==
LOC: LAB 09:04
PROVIDERS: ATTEND Family Medicine
DX: M54.9 Dorsalgia, unspecified (principal)
CPT/HCPCS: 36415; 72072; 83690; 85025

== ENCOUNTER 2021-03-07 07:11 | Outpatient (CLI) | payer BC, OTHER | END 2021-03-07 23:59 | disposition home or self-care (01) | LOC: LAB 07:11 | PROVIDERS: ATTEND Obstetrics & Gynecology | DX: Z01.812 Encounter for preprocedural laboratory examination (principal); Z20.822 Contact with and (suspected) exposure to COVID-19 ==

== ENCOUNTER 2021-03-07 08:50 | Outpatient (CLI) | payer BC, OTHER ==
[2021-03-07 12:36] LABS: HEMATOCRIT 38.3 % (31.2-41.9); MEAN CORPUSCULAR HEMOGLOBIN 33.9 uug (24.7-32.8); MEAN CORPUSCULAR VOLUME 97.2 fL (75.5-95.3); PLATELET COUNT (AUTO) 220 K/uL (179-408)
[2021-03-07 12:38] LABS: ALANINE AMINOTRANSFERASE 16 U/L (14-59); ALKALINE PHOSPHATASE 59 U/L (50-136); ASPARTATE AMINOTRANSFERASE 17 U/L (15-37); BILIRUBIN,TOTAL 0.7 mg/dL (0.2-1.0); CARBON DIOXIDE 32 mmol/L (21-32); CHLORIDE 105 mmol/L (98-107); CREATININE 0.6 mg/dL (0.6-1.3); GLUCOSE 93 mg/dL (74-106); POTASSIUM 3.6 mmol/L (3.5-5.1); TOTAL PROTEIN, SERUM 7.9 g/dL (6.4-8.2)
[2021-03-07 12:51] LABS: *BILIRUBIN,URIN NEGATIVE (NEGATIVE); *BLOOD, URINE 3+ (NEGATIVE); *CLARITY,URINE CLEAR (CLEAR); *COLOR,URINE YELLOW (YELLOW); *KETONES,URINE NEGATIVE (NEGATIVE); *UROBILINOGEN,URINE 0.2 E.U./dl (NORMAL); LEUKOCYTE ESTERASE ,URINE NEGATIVE (NEGATIVE); NITRITE, URINE NEGATIVE (NEGATIVE); PH,URINE 5.5 (5.0-8.0); UGLUCOSE NEGATIVE (NEGATIVE)
[2021-03-07 14:48] LABS: BACTERIA,URINE NONE SEEN /HPF (NONE SEEN); SQUAMOUS EPITHELIAL CELL,UR MODERATE /HPF (NONE SEEN); URINE AMORPHOUS URATE MANY /HPF
[2021-03-07 15:05] LABS: UREA NITROGEN, BLOOD 15 mg/dL (7-18)
== END 2021-03-07 23:59 | disposition home or self-care (01) ==
LOC: LAB 08:50
PROVIDERS: ATTEND Obstetrics & Gynecology
DX: Z01.818 Encounter for other preprocedural examination (principal); R87.810 Cervical high risk human papillomavirus (HPV) DNA test positive
CPT/HCPCS: 36415; 85025; 85730; 86850; 86900; 86901

== ENCOUNTER 2021-03-09 11:07 | Day surgery (SDC) | payer BC, OTHER ==
[2021-03-09] MEDS ORDERED: CEFAZOLIN 1 G VIAL IM ONE (11:08)
[2021-03-09] MEDS ORDERED: DEXAMETHASONE SOD PHOSPHATE 4 MG INJ IV ONE (11:08)
[2021-03-09] MEDS ORDERED: SEVOFLURANE 250 ML BOTTLE IH ONE (11:08)
[2021-03-09] MEDS ORDERED: KETOROLAC TROMETHAMINE 30 MG INJ IM ONE (11:08)
[2021-03-09] MEDS ORDERED: PROPOFOL 200 MG/20 ML BOTTLE IV ONE (11:08)
[2021-03-09] MEDS ORDERED: CEFAZOLIN 50 ML IV ONE (11:24)
[2021-03-09 11:37] LABS: *URINE HCG, QUAL NEG (NEGATIVE)
[2021-03-09] MEDS ORDERED: FENTANYL CITRATE 100 MCG/2 ML AMPUL ONE ×2 (11:53→13:34)
[2021-03-09] MEDS ORDERED: OXYCODONE/APAP 5-325 MG TABLET ONE (14:56)
[2021-03-09] MEDS ORDERED: OXYCODONE/APAP 5-325 MG TABLET PO PRN (15:00)
== END 2021-03-09 15:05 | disposition home or self-care (01) ==
LOC: DS 11:07
PROVIDERS: ATTEND Obstetrics & Gynecology
DX: N72 Inflammatory disease of cervix uteri (principal); R87.810 Cervical high risk human papillomavirus (HPV) DNA test positive; R89.6 Abnormal cytological findings in specimens from other organs, systems and tissues; Z79.899 Other long term (current) drug therapy; Z98.890 Other specified postprocedural states
CPT/HCPCS: 57522; 84703; J0690 ×2; J1100; J1885; J3010; J7120; A4663; J3490

== ENCOUNTER → 2021-05-22 | Outpatient (CLI) | payer BC, OTHER ==
[2021-05-24 17:19] LABS: LUTEINIZING HORMONE 32.5
[2021-05-24 17:20] LABS: FOLLICLE STIMULATION HORMONE 64.3; PROLACTIN 3.4 Low
== END | disposition home or self-care (01) ==
LOC: LAB 12:09
PROVIDERS: ATTEND Family Medicine
DX: N95.0 Postmenopausal bleeding (principal)
CPT/HCPCS: 36415; 83001; 83002; 84146

== ENCOUNTER → 2021-09-08 | Outpatient (CLI) | payer BC, OTHER ==
[2021-09-08 09:29] LABS: CREATININE 0.6 mg/dL (0.6-1.3)
== END | disposition home or self-care (01) ==
LOC: LAB 07:59
PROVIDERS: ATTEND Family Medicine
DX: R51.9 Headache, unspecified (principal)
CPT/HCPCS: 36415; 84520

== ENCOUNTER 2021-12-27 08:20 | Emergency (ER) | payer BC, OTHER ==
[~2021-12-27] VITALS: Ht 149.9 cm; Wt 49.9 kg
[2021-12-27] MEDS ORDERED: IBUPROFEN 400 MG TABLET PO ONE (08:45)
[2021-12-27] MEDS ORDERED: IBUPROFEN 400 MG TABLET ONE (08:47)
[2021-12-27] MEDS ORDERED: BENZ-13 PO (09:24)
[2021-12-27 09:33] VITALS: BP 113/65
== END 2021-12-27 09:33 | disposition home or self-care (01) ==
LOC: ER 08:21
DX: B34.9 Viral infection, unspecified (principal); R05.9 Cough, unspecified; Z20.822 Contact with and (suspected) exposure to COVID-19; K21.9 Gastro-esophageal reflux disease without esophagitis; Z79.899 Other long term (current) drug therapy
CPT/HCPCS: A4663

== ENCOUNTER 2022-03-21 10:04 | Outpatient (CLI) | payer BC, OTHER ==
[~2022-03-21 10:04] MED LIST changes: +BENZ-13 PO; -PANT20TA2 PO
[2022-03-21 12:46] LABS: *BILIRUBIN,URIN NEGATIVE (NEGATIVE); *BLOOD, URINE 2+ (NEGATIVE); *CLARITY,URINE CLEAR (CLEAR); *COLOR,URINE YELLOW (YELLOW); *KETONES,URINE NEGATIVE (NEGATIVE); *UROBILINOGEN,URINE 0.2 E.U./dl (NORMAL); LEUKOCYTE ESTERASE ,URINE NEGATIVE (NEGATIVE); NITRITE, URINE NEGATIVE (NEGATIVE); PH,URINE 5.5 (5.0-8.0); UGLUCOSE NEGATIVE (NEGATIVE)
[2022-03-21 12:48] LABS: BACTERIA,URINE FEW /HPF (NONE SEEN); SQUAMOUS EPITHELIAL CELL,UR FEW /HPF (NONE SEEN); WBC,URINE 0-3 /HPF (0-3)
[2022-03-21 12:51] LABS: CREATININE 0.8 mg/dL (0.6-1.3); POTASSIUM 3.5 mmol/L (3.5-5.1)
[2022-03-21 13:48] LABS: MEAN CORPUSCULAR HEMOGLOBIN 33.2 uug (24.7-32.8); MEAN CORPUSCULAR VOLUME 96.5 fL (75.5-95.3); PLATELET COUNT (AUTO) 227 K/uL (179-408)
== END 2022-03-21 23:59 | disposition home or self-care (01) ==
LOC: LAB 10:04
PROVIDERS: ATTEND Obstetrics & Gynecology
DX: D25.9 Leiomyoma of uterus, unspecified (principal)
CPT/HCPCS: 36415; 85025; 85610; 85730; 86900; 86901

== ENCOUNTER 2022-06-01 07:37 | Outpatient (CLI) | payer BC, OTHER | END 2022-06-01 23:59 | disposition home or self-care (01) | LOC: LAB 07:37 | PROVIDERS: ATTEND Internal Medicine Gastroenterology | DX: Z01.812 Encounter for preprocedural laboratory examination (principal); Z20.822 Contact with and (suspected) exposure to COVID-19 ==

== ENCOUNTER 2022-06-04 06:23 | Day surgery (SDC) | payer BC, OTHER ==
[2022-06-04] MEDS ORDERED: LIDOCAINE-MPF 2% 5 ML VIAL IJ ONE (06:24)
[2022-06-04] MEDS ORDERED: PROPOFOL 200 MG/20 ML BOTTLE IV ONE (06:24)
[2022-06-04 07:11] LABS: HEMATOCRIT 41.9 % (31.2-41.9); MEAN CORPUSCULAR HEMOGLOBIN 33.2 uug (24.7-32.8); MEAN CORPUSCULAR VOLUME 96.2 fL (75.5-95.3); PLATELET COUNT (AUTO) 261 K/uL (179-408)
[2022-06-04 07:22] LABS: CARBON DIOXIDE 25 mmol/L (21-32); CHLORIDE 103 mmol/L (98-107); CREATININE 0.9 mg/dL (0.6-1.3); GLUCOSE 99 mg/dL (74-106); POTASSIUM 3.8 mmol/L (3.5-5.1); UREA NITROGEN, BLOOD 17 mg/dL (7-18)
[2022-06-04 07:28] LABS: ALANINE AMINOTRANSFERASE 15 U/L (14-59); ALKALINE PHOSPHATASE 68 U/L (50-136); ASPARTATE AMINOTRANSFERASE 15 U/L (15-37)
== END 2022-06-04 09:20 | disposition home or self-care (01) ==
LOC: DS 06:23
PROVIDERS: ATTEND Internal Medicine Gastroenterology
DX: Z12.11 Encounter for screening for malignant neoplasm of colon (principal); K64.8 Other hemorrhoids; K63.89 Other specified diseases of intestine; Z79.899 Other long term (current) drug therapy; Z98.890 Other specified postprocedural states; Z79.01 Long term (current) use of anticoagulants; Z87.440 Personal history of urinary (tract) infections
CPT/HCPCS: 45378; 80053; 84702; 85025; 85730; 36415; J3490; J7120; A4663

== ENCOUNTER 2022-08-22 08:30 | Outpatient (CLI) | payer BC, OTHER ==
[2022-08-26] MEDS ORDERED: HYDR-3972 PO (08:22)
[2022-08-26] MEDS ORDERED: ONDA4TAB5 SL (08:22)
[2022-08-26] MEDS ORDERED: PANT40TA2 PO (08:22)
== END 2022-08-22 23:59 | disposition home or self-care (01) ==
LOC: LAB 08:30
PROVIDERS: ATTEND Obstetrics & Gynecology
DX: Z01.812 Encounter for preprocedural laboratory examination (principal); Z20.822 Contact with and (suspected) exposure to COVID-19

== ENCOUNTER 2022-08-24 08:42 | Inpatient (IN) | payer BC, OTHER ==
[~2022-08-24] VITALS: Ht 149.9 cm; Wt 48.1 kg
[2022-08-24 09:35] LABS: *URINE HCG, QUAL NEG (NEGATIVE)
[2022-08-24] MEDS ORDERED: CEFAZOLIN 50 ML IV ONE (09:51)
[2022-08-24] MEDS ORDERED: FENTANYL CITRATE 100 MCG/2 ML AMPUL ONE (10:13)
[2022-08-24] MEDS ORDERED: MIDAZOLAM HCL 2 MG/2 ML VIAL ONE (10:13)
[2022-08-24] MEDS ORDERED: ROCURONIUM BROMIDE 50 MG/5 ML VIAL ONE (10:13)
[2022-08-24] MEDS ORDERED: HYDROMORPHONE 1 MG/1 ML DISP.SYRIN ONE (12:14)
[2022-08-24] MEDS ORDERED: LIDOCAINE-MPF 2% 5 ML VIAL ONE (12:34)
[2022-08-24] MEDS ORDERED: EPHEDRINE SULFATE 50 MG/ML AMPUL ONE (12:34)
[2022-08-24] MEDS ORDERED: GLYCOPYRROLATE 0.2 MG/ML VIAL ONE (12:34)
[2022-08-24] MEDS ORDERED: METOCLOPRAMIDE HCL 10 MG/2 ML VIAL ONE (12:34)
[2022-08-24] MEDS ORDERED: CEFAZOLIN 1 G VIAL ONE (12:34)
[2022-08-24] MEDS ORDERED: NEOSTIGMINE METHYLSULFATE 10 MG/10 ML VIAL ONE (12:34)
[2022-08-24] MEDS ORDERED: ONDANSETRON 4 MG/2 ML VIAL ONE ×2 (12:34→13:05)
[2022-08-24] MEDS ORDERED: PROPOFOL 200 MG/20 ML BOTTLE ONE (12:34)
--- NOTE | 2022-08-24 13:45 | NUR ---
PATIENT RECEIVED ON [facility] FLOOR. VITAL SIGNS WNL. DIAZ IN PLACE ABDOMEN SOFT TO TOUCH. WITH NO VAGINAL BLEEDING. IV INFUSING WELL. AROUSABLE TO TOUCH AND VOICE. PATIENT COMPLAINED OF ABDOMINAL PAIN WITH MOVEMENT. PATIENT WAS MEDICATED WITH DILAUDID PRIOR TO TRANSFER. PATIENT ALSO COMPLAINED OF NAUSEA. IVPB ZOFRAN WAS STARTED. PATIENT IS SLEEPING
[2022-08-24 14:00] VITALS: BP 110/58
[2022-08-24] MEDS ORDERED: ONDANSETRON INJ 8 MG in IV NORMAL SALINE 50 ML IV PRN (14:15)
[2022-08-24] MEDS ORDERED: HYDROMORPHONE 2 MG/1 ML DISP.SYRIN IV PRN (14:15)
[2022-08-24] MEDS ORDERED: IV LACTATED RINGERS SOLUTION 1,000 ML IV PRN (14:15)
[2022-08-24] MEDS ORDERED: HYDROMORPHONE 1 MG/1 ML DISP.SYRIN IV PRN ×3 (14:15→14:22)
[2022-08-24] MEDS ORDERED: ONDANSETRON 4 MG/2 ML VIAL IV PRN (14:15)
[2022-08-24] MEDS: IV LACTATED RINGERS SOLUTION 1,000 ML IV PRN ×2 (14:45→21:02)
[2022-08-24 16:19] VITALS: BP 101/47
[2022-08-24] MEDS ORDERED: MORPHINE SULFATE 2 MG/1 ML DISP.SYRIN IM PRN (20:15)
[2022-08-24 20:22] VITALS: BP 98/49
[2022-08-25] MEDS: MORPHINE SULFATE 2 MG/1 ML DISP.SYRIN IV PRN ×3 (03:14→17:56)
--- NOTE | 2022-08-25 04:06 | NUR ---
Awake upon initial rounds. AAOx4 No acute distress noted. Patient S/P removal of fibroids POD #1 Abdominal dressing clean dry and intact. Needs attended. IVF's infusing well. No nausea/vomiting noted. Complained of pain , morphine 2mg IV given as ordered with slight relief noted. Mai catheter intact draining dylon urine. Will monitor patient. Kept comfortable. Fall precautions maintained. Siderails up for safety. VSS.
[2022-08-25 04:25] VITALS: BP 95/50
[2022-08-25] MEDS: IV LACTATED RINGERS SOLUTION 1,000 ML IV PRN ×2 (05:13→13:33)
[2022-08-25 06:46] LABS: HEMATOCRIT 32.3 % (31.2-41.9); MEAN CORPUSCULAR HEMOGLOBIN 33.6 uug (24.7-32.8); MEAN CORPUSCULAR VOLUME 96.1 fL (75.5-95.3); PLATELET COUNT (AUTO) 180 K/uL (179-408)
[2022-08-25 09:06] LABS: CARBON DIOXIDE 29 mmol/L (21-32); CHLORIDE 106 mmol/L (98-107); CREATININE 0.5 mg/dL (0.6-1.3); GLUCOSE 86 mg/dL (74-106); POTASSIUM 3.5 mmol/L (3.5-5.1); UREA NITROGEN, BLOOD 8 mg/dL (7-18)
[2022-08-25] MEDS: ONDANSETRON 4 MG/2 ML VIAL IV PRN ×2 (09:53→17:56)
[2022-08-25 12:00] VITALS: BP 103/45
[2022-08-25] MEDS ORDERED: ACETAMINOPHEN 325 MG TABLET PO PRN (14:30)
--- NOTE | 2022-08-25 15:45 | NUR ---
patient is passing gas, ambulating with supervision, no acute distress noted
[2022-08-25 16:37] VITALS: BP 98/49
--- NOTE | 2022-08-25 18:26 | NUR ---
patient stated she does not want anymore IV hydration and IV line, ALEX Gamboa made aware. patient is tolerating po intake. ambulating to bathroom. no acute distress noted. Addendum: 08/25/22 at 1832 by ANURAG OLIVA RN RN zofran was administered for nausea from morphine pain medication, however patient tolerated meals.
[2022-08-25 20:24] VITALS: BP 90/51
[2022-08-25] MEDS: HYDROCODONE/APAP 5-325MG TABLET PO PRN (21:40)
[2022-08-26] MEDS: HYDROCODONE/APAP 5-325MG TABLET PO PRN (03:58)
[2022-08-26 04:31] VITALS: BP 104/55
[2022-08-26] MEDS ORDERED: HYDR-3972 PO (08:22)
[2022-08-26] MEDS ORDERED: PANT40TA2 PO (08:22)
[2022-08-26] MEDS ORDERED: ONDA4TAB5 SL (08:22)
[2022-08-26] MEDS ORDERED: ONDANSETRON ODT 4 MG TAB.RAPDIS SL PRN (10:30)
[2022-08-26 11:31] VITALS: BP 100/61
== END 2022-08-26 13:30 | disposition home or self-care (01) | DRG 743 ==
LOC: DS 08:42 → MEDSURG3 12:50
PROVIDERS: ADMIT Nurse Practitioner Acute Care; ATTEND Nurse Practitioner Acute Care
PROC: 0UB90ZZ Excision of Uterus, Open Approach (ICD-10-PCS; principal; 2022-08-24)
DX: D25.9 Leiomyoma of uterus, unspecified (principal); N73.6 Female pelvic peritoneal adhesions (postinfective); Z98.891 History of uterine scar from previous surgery
CPT/HCPCS: 36415; 84703; 85025; 86900; 86901; A4663; G0378; J0690; J1170; J2250; J2270; J2405; J2765; J3010; J3490; J7120; Q0162

== ENCOUNTER 2023-05-23 10:11 | Emergency (ER) | payer BC, OTHER ==
[~2023-05-23] VITALS: Ht 149.9 cm; Wt 48.5 kg
[~2023-05-23 10:11] MED LIST changes: -BENZ-13 PO; +HYDR-3972 PO; +IBUP-1957 PO; +ONDA4TAB5 SL; +OXYC-128 PO; +PANT40TA2 PO
[2023-05-23 11:32] VITALS: BP 122/70; TEMP 98; O2SAT 100
== END 2023-05-23 11:33 | disposition home or self-care (01) ==
LOC: ER 10:11
DX: S13.4XXA Sprain of ligaments of cervical spine, initial encounter (principal); K21.9 Gastro-esophageal reflux disease without esophagitis; Z79.899 Other long term (current) drug therapy; V49.3XXA Car occupant (driver) (passenger) injured in unspecified nontraffic accident, initial encounter; Y93.89 Activity, other specified; Y92.89 Other specified places as the place of occurrence of the external cause; Y99.8 Other external cause status
CPT/HCPCS: 72040; A4606; A4663

== ENCOUNTER 2024-02-24 09:17 | Emergency (ER) | payer BC, OTHER ==
[~2024-02-24] VITALS: Ht 149.9 cm; Wt 46.7 kg
[2024-02-24 09:20] VITALS: O2SAT 99
[2024-02-24] MEDS ORDERED: HYDR-3980 PO (10:35)
== END 2024-02-24 10:45 | disposition home or self-care (01) ==
LOC: ER 09:17
DX: S39.012A Strain of muscle, fascia and tendon of lower back, initial encounter (principal); K21.9 Gastro-esophageal reflux disease without esophagitis; Z79.1 Long term (current) use of non-steroidal anti-inflammatories (NSAID); Z79.891 Long term (current) use of opiate analgesic; Z79.899 Other long term (current) drug therapy; X50.0XXA Overexertion from strenuous movement or load, initial encounter; Y93.89 Activity, other specified; Y92.89 Other specified places as the place of occurrence of the external cause; Y99.8 Other external cause status
CPT/HCPCS: A4606; A4663

== ENCOUNTER 2024-06-16 11:35 | Emergency (ER) | payer BC, OTHER ==
[~2024-06-16] VITALS: Ht 149.9 cm; Wt 47.6 kg
[~2024-06-16 11:35] MED LIST changes: +HYDR-3980 PO
[2024-06-16 11:44] VITALS: O2SAT 99
[2024-06-16] MEDS ORDERED: IBUP-1955 PO (12:11)
== END 2024-06-16 12:24 | disposition home or self-care (01) ==
LOC: ER 11:35
DX: M54.50 Low back pain, unspecified (principal); K21.9 Gastro-esophageal reflux disease without esophagitis; Z79.1 Long term (current) use of non-steroidal anti-inflammatories (NSAID); Z79.899 Other long term (current) drug therapy; Z88.7 Allergy status to serum and vaccine
CPT/HCPCS: A4606; A4663

== ENCOUNTER 2024-11-25 12:06 | Emergency (ER) | payer BC, OTHER ==
[~2024-11-25] VITALS: Ht 149.9 cm; Wt 48.5 kg
[~2024-11-25 12:06] MED LIST changes: +IBUP-1955 PO
[2024-11-25 13:32] VITALS: BP 109/76; TEMP 98.4; O2SAT 99
== END 2024-11-25 13:58 | disposition home or self-care (01) ==
LOC: ER 12:06
DX: S86.111A Strain of other muscle(s) and tendon(s) of posterior muscle group at lower leg level, right leg, initial encounter (principal); K21.9 Gastro-esophageal reflux disease without esophagitis; Z79.1 Long term (current) use of non-steroidal anti-inflammatories (NSAID); Z79.899 Other long term (current) drug therapy; Z88.7 Allergy status to serum and vaccine; Z87.39 Personal history of other diseases of the musculoskeletal system and connective tissue; V43.52XA Car driver injured in collision with other type car in traffic accident, initial encounter; Y93.89 Activity, other specified; Y92.488 Other paved roadways as the place of occurrence of the external cause; Y99.8 Other external cause status
CPT/HCPCS: 73590; 73620; A4606; A4663